=== PATIENT | female | born 1970 | race Caucasian/White ===

== ENCOUNTER 2017-05-20 23:35 | Emergency (ER) | payer SELFPAY ==
[~2017-05-20] VITALS: Ht 175.3 cm; Wt 73.5 kg
--- NOTE | 2017-05-20 23:49 | NUR ---
initial assessment: pt came from home with c/o SOB x 2 weeks, states "i have not been able to take a deep breathe for the last two week" breathing even/unlabored O2 on RA 98%. wheezing heard over left posterior lung field.
--- NOTE | 2017-05-21 00:24 | NUR ---
XR bedside at this time. VS stable, NAD noted
--- NOTE | 2017-05-21 00:45 | NUR ---
pt talking with friend bedside, breatging unlabored, NAD noted, no c/o pain at this time
[2017-05-21 01:08] VITALS: BP 117/78
== END 2017-05-21 01:09 | disposition home or self-care (01) ==
LOC: ER 23:39
DX: F43.9 Reaction to severe stress, unspecified (principal)
CPT/HCPCS: 71010; 99283; A4606 ×2; Z7610 ×2